=== PATIENT | female | born 2005 | race Caucasian/White ===

== ENCOUNTER 2023-05-12 08:59 | Emergency (ER) | payer SELFPAY ==
[~2023-05-12] VITALS: Ht 154.9 cm; Wt 60.9 kg
[2023-05-12] MEDS ORDERED: ZOFRAN ODT4 MG PO (10:16)
[2023-05-12 10:28] VITALS: BP 100/62
== END 2023-05-12 10:30 | disposition home or self-care (01) ==
LOC: ED 08:59
DX: U07.1 COVID-19 (principal); R09.81 Nasal congestion; R06.02 Shortness of breath; R05.9 Cough, unspecified; R11.2 Nausea with vomiting, unspecified; R51.9 Headache, unspecified; Z28.310 Unvaccinated for COVID-19